=== PATIENT | female | born 1980 | race Hispanic/Latino ===

== ENCOUNTER 2017-07-01 17:00 | Emergency (ER) | payer SELFPAY ==
[~2017-07-01 17:00] MED LIST: AMOX-429 PO; NPH,100V11 SQ
== END 2017-07-01 18:32 | disposition home or self-care (01) ==
LOC: EDH 17:00
DX: E11.621 Type 2 diabetes mellitus with foot ulcer (principal); Z79.4 Long term (current) use of insulin
CPT/HCPCS: 99281

== ENCOUNTER 2020-02-26 14:23 | Inpatient (IN) | payer MEDICAID ==
[~2020-02-26] VITALS: Ht 160 cm; Wt 69.4 kg
[~2020-02-26 14:23] MED LIST changes: -AMOX-429 PO; +INSREG SQ; +INSU100I21 SQ; -NPH,100V11 SQ
[2020-02-26] MEDS ORDERED: DEXTROSE 50%-WATER 50 ML DISP.SYRIN IV ONE (14:50)
[2020-02-26] MEDS ORDERED: AZITHROMYCIN 250 MG TABLET PO ONE (16:06)
[2020-02-26] MEDS ORDERED: CEFTRIAXONE SODIUM 1 GM ONE (16:06)
[2020-02-26 17:29] LABS: BASOPHILS % (AUTO) 0.3 % (0.0-5.0); EOSINOPHILS % (AUTO) 0.9 % (0.0-8.0); HEMATOCRIT 26.6 % (36-48); MEAN CORPUSCULAR HEMOGLOBIN 27.2 pg (27.0-33.0); MEAN CORPUSCULAR VOLUME 85.3 fL (79-99); NEUTROPHILS % (AUTO) 83.2 % (40.0-77.0); PLATELET COUNT (AUTO) 358 K/uL (130-400); RED BLOOD CELL COUNT(AUTO) 3.12 MIL/uL (4.00-5.50); RED CELL DISTRIBUTION WIDTH 14.1 % (11.0-15.5); WHITE BLOOD COUNT (AUTO) 17.5 K/uL (4.8-10.8)
[2020-02-26 17:42] LABS: APPEARANCE,URINE Clear (CLEAR); BILIRUBIN,URINE Negative (NEGATIVE); COLOR,URINE Dark Yellow (YELLOW); GLUCOSE, URINE (UA) Negative (NEGATIVE); KETONES,URINE Trace mg/dL (NEGATIVE); LEUKOCYTE ESTERASE ,URINE Trace (NEGATIVE); NITRATE,URINE Negative (NEGATIVE); OCCULT BLOOD,URINE Negative (NEGATIVE); PROTEIN,URINE 300 mg/dL (NEGATIVE)
[2020-02-26 17:47] LABS: HCG,QUAL RESULT NEGATIVE (NEGATIVE)
[2020-02-26 17:47] LABS: CARBON DIOXIDE 24 mmol/L (21-32); CHLORIDE 101 mmol/L (101-111); CREATININE 1.1 mg/dL (0.5-1.5); GLOMERULAR FILTR. RATE CALC 58 mL/min (>60); GLUCOSE,RANDOM 212 mg/dL (70-105); INR 1.02 (0.85-1.15); PARTIAL THROMBOPLASTIN TIME 32.3 SEC (26.3-35.5); POTASSIUM 3.7 mmol/L (3.5-5.1); SODIUM SERUM 135 mmol/L (136-145); UREA NITROGEN, BLOOD 21 mg/dL (7-18)
[2020-02-26 17:52] LABS: ALANINE AMINOTRANSFERASE 14 U/L (12-78); ALBUMIN 1.9 g/dL (3.5-5.0); ASPARTATE AMINOTRANSFERASE 14 U/L (10-37); BILIRUBIN,TOTAL 0.3 mg/dL (0.2-1.0); CREATINE KINASE, TOTAL 22 U/L (21-232)
[2020-02-26 17:54] LABS: LIPASE < 50 U/L (114-286)
[2020-02-26 18:01] LABS: BACTERIA,URINE Few /HPF (None Seen); RBC,URINE 0-1 /HPF (0-1); WBC,URINE 0-1 /HPF (0-1)
[2020-02-26 18:02] LABS: MUCUS,URINE Few LPF (None Seen); SQUAMOUS EPITHELIAL CELL,UR Few /HPF (0-2); TRANSITIONAL EPI CELLS,URINE Few /HPF (None Seen)
[2020-02-26] MEDS ORDERED: SODIUM CHLORIDE 0.9% 1000ML 1,000 ML IV SCH (19:08)
[2020-02-26] MEDS ORDERED: MAG HYDROX/AL HYDROX/SIMETH 30 ML, LIDOCAINE HCL 2% VISCOUS 30 ML, DIPHENHYDRAMINE HCL ... PO PRN ×3 (19:15)
[2020-02-26] MEDS ORDERED: MORPHINE SULFATE 4 MG/1ML SYG IV PRN (19:15)
[2020-02-26] MEDS ORDERED: LIDOCAINE HCL 2% VISCOUS 30 ML, MAG HYDROX/AL HYDROX/SIMETH 30 ML, BELLADONNA-PHENOBARB... PO PRN ×3 (19:15)
[2020-02-26] MEDS ORDERED: MAG HYDROX/AL HYDROX/SIMETH ES 30 ML SUSP UDCUP PO PRN (19:15)
[2020-02-26] MEDS ORDERED: DIPHENHYDRAMINE HCL 25 MG CAPSULE PO PRN (19:15)
[2020-02-26] MEDS: CEFTRIAXONE SODIUM 1 GM IVP SCH (19:15)
[2020-02-26] MEDS ORDERED: NITROGLYCERIN 0.4 MG SL TAB SL PRN (19:15)
[2020-02-26] MEDS ORDERED: MORPHINE SULFATE 2 MG/ML 1ML SYG IV PRN (19:15)
[2020-02-26] MEDS ORDERED: LACTULOSE 20 GM/30 ML UDCUP PO PRN (19:15)
[2020-02-26] MEDS ORDERED: ERGOCALCIFEROL (VITAMIN D2) 50,000 UNIT CAPSULE PO ONE (19:15)
[2020-02-26] MEDS: AZITHROMYCIN 500MG+NS 250ML 250 ML IV SCH (19:15)
[2020-02-26] MEDS ORDERED: DiphenhydrAMINE HCL 50 MG/ML VIAL IV PRN (19:15)
[2020-02-26] MEDS ORDERED: ACETAMINOPHEN 325 MG TAB PO PRN (19:15)
[2020-02-26] MEDS ORDERED: ZOLPIDEM TARTRATE 5 MG TAB PO PRN (19:15)
[2020-02-26] MEDS ORDERED: ERGOCALCIFEROL (VITAMIN D2) 50,000 UNIT CAPSULE ONE (19:51)
[2020-02-26] MEDS ORDERED: FAMOTIDINE/PF 20 MG/2 ML VIAL IV ONE (19:52)
[2020-02-26] MEDS ORDERED: DEXAMETHASONE SOD PHOSPHATE 4 MG/ML 1ML VIAL ONE (19:52)
[2020-02-26] MEDS ORDERED: DEXAMETHASONE SOD PHOSPHATE 4 MG/ML 1ML VIAL IVP SCH (20:30)
[2020-02-26] MEDS: FAMOTIDINE/PF 20 MG/2 ML VIAL IV SCH (21:00)
[2020-02-27] VITALS (9 sets, daily range): BP systolic 109–184; BP diastolic 59–93
[2020-02-27] MEDS ORDERED: IPRATROPIUM 0.5 MG/2.5 ML INH IH SCH
--- NOTE | 2020-02-27 01:00 | NUR ---
RESPIRATORY CHANGE TELE CALLED TO REPORT SUDDEN DROP IN PATIENT'S HR TO 40S. ON ASSESSMENT PATIENT COMPLAIN OF FEELING HOT. OXYGEN SATURATION FOUND TO BE BETWEEN 72-88% ON ROOM AIR. RESPIRATORY THERAPIST HAD ARRIVED ON THE UNIT, ASSISTED WITH SETTING UP THE PATIENT ON 4L OXYGEN VIA NASAL CANNULA. PATIENT SATURATION BETWEEN 98-100%. TEMPERATURE CHECKED BY CHARGE WITH INFRARED THERMOMETER AND FOUND TO BE NORMAL. WILL CONTINUE TO MONITOR STATUS OF THE PATIENT.
--- NOTE | 2020-02-27 02:36 | NUR ---
ASSESSMENT PATIENT SKIN FOUND TO BE COLD AND CLAMMY, BLOOD GLUCOSE ASSESSED FOUND TO BE 173. PATIENT REMINDED TO USE THE CALL LIGHT AND CALL FOR HELP NEEDED. LEFT COMFORTABLE IN BED. DOCTOR ROUNDED AND WAS INFORMED ABOUT PREVIOUS DECREASE IN HEART RATE AND OXYGEN SATURATION. HE STATED TO MONITOR THE PATIENT AND PERFORM ABG IF THERE IS ANOTHER REDUCTION IN SATURATION.
[2020-02-27 05:05] LABS: BASOPHILS % (AUTO) 0.2 % (0.0-5.0); EOSINOPHILS % (AUTO) 0.1 % (0.0-8.0); HEMATOCRIT 27.5 % (36-48); LYMPHOCYTES % (AUTO) 9.4 % (21.0-51.0); MEAN CORPUSCULAR HGB CONC 31.6 g/dL (32.0-36.0); MEAN CORPUSCULAR VOLUME 85.4 fL (79-99); MONOCYTES % (AUTO) 1.3 % (3.0-13.0); NEUTROPHILS % (AUTO) 88.3 % (40.0-77.0); PLATELET COUNT (AUTO) 278 K/uL (130-400); RED BLOOD CELL COUNT(AUTO) 3.22 MIL/uL (4.00-5.50); WHITE BLOOD COUNT (AUTO) 12.8 K/uL (4.8-10.8)
[2020-02-27 05:32] LABS: BILIRUBIN,TOTAL 0.2 mg/dL (0.2-1.0); CREATININE 0.9 mg/dL (0.5-1.5); CRP QUANTITATIVE 171.2 mg/L (0.00-9.0); POTASSIUM 4.3 mmol/L (3.5-5.1); TOTAL PROTEIN, SERUM 7.4 g/dL (6.0-8.3)
[2020-02-27] MEDS: HYDRALAZINE HCL 20 MG/ML VIAL IV PRN ×2 (05:57→10:19)
[2020-02-27] MEDS: ALBUTEROL INHALER 90MCG/INH IH SCH ×5 (06:00→23:43)
--- NOTE | 2020-02-27 06:03 | NUR ---
ELEVATED BP SPOKE TO DUARTE OCAMPO WHO ORDERED [id number] IV EVERY 4 HOURS FOR SYSTOLIC BP ABOVE 150. WILL CONTINUE TO MONITOR BP.
--- NOTE | 2020-02-27 07:14 | NUR ---
ELEVATED BP [employer] SYSTEM[employer] ADMINISTRATOR TIRADO INFORMED OF BP 165/80, HR-77, INFORMED WITH ORDERS TO CONTINUE MONITORING. NO ADDITIONAL ORDERS AT THIS TIME.
[2020-02-27] MEDS: CEFTRIAXONE SODIUM 1 GM IVP SCH ×2 (09:09→18:30)
[2020-02-27] MEDS: ASCORBIC ACID 500 MG TAB PO SCH (09:09)
[2020-02-27] MEDS: ZINC SULFATE 220 CAPSULE PO SCH (09:09)
[2020-02-27] MEDS: FAMOTIDINE/PF 20 MG/2 ML VIAL IV SCH ×2 (09:09→20:41)
[2020-02-27] MEDS: ENOXAPARIN SODIUM 40 MG/0.4 ML SYRINGE SQ SCH (09:10)
[2020-02-27] MEDS: GABAPENTIN 100 MG CAPSULE PO SCH ×2 (12:09→18:30)
[2020-02-27] MEDS ORDERED: GLUCAGON 1MG KIT 1 MG ML IM PRN (12:45)
[2020-02-27] MEDS ORDERED: DEXTROSE 50%-WATER 50 ML DISP.SYRIN IV PRN (12:45)
[2020-02-27] MEDS: HUMALOG PO SS1/2 SQ SCH ×2 (16:53→21:00)
[2020-02-27] MEDS: INSULIN LISPRO 100 UNIT/ML 3ML SQ SCH (16:54)
--- NOTE | 2020-02-27 17:37 | NUR ---
cm note pt resides at home with family, independent with adls and ambulation. no dme. no home services. dc [place] no dc needs. Addendum: 02/27/20 at 1742 by CHUN BAEZA CM Amended: Links added.
[2020-02-27] MEDS: AZITHROMYCIN 500MG+NS 250ML 250 ML IV SCH (19:34)
[2020-02-27] MEDS: ONDANSETRON HCL 4 MG/2 ML VIAL IV PRN (20:41)
[2020-02-27] MEDS: GUAIFENESIN-DM 200/20 MG 10 ML PO PRN (20:41)
[2020-02-27] MEDS: ACETAMINOPHEN 325 MG TAB PO PRN (20:42)
[2020-02-27] MEDS: INSULIN GLARGINE 100 UNITS/ML 10 ML VIAL SQ SCH ×2 (20:44→21:00)
[2020-02-27] MEDS ORDERED: KETOROLAC TROMETHAMINE 15MG/ML ONE (21:35)
--- NOTE | 2020-02-27 21:48 | NUR ---
PATIENT COMPLAIN OF HEADACHE CONTACTED MATERIALS PLANNING MANAGER ON DUTY WHO ORDERED TORADOL. FIRST DOSE GIVEN BP 152/85, HR- 76. WILL CONTINUE TO ASSESS RESPONSE.
[2020-02-27] MEDS ORDERED: INHALER, ASSIST DEVICE 1 EA IH ONE (22:15)
[2020-02-28] MEDS: GABAPENTIN 100 MG CAPSULE PO SCH ×3 (01:44→18:48)
[2020-02-28 04:00] VITALS: BP 113/67
--- NOTE | 2020-02-28 04:00 | NUR ---
LUCOSE GMR 51, D50% ADMINISTERED PER PROTOCOL. DUARTE TIRADO ON THE UNIT AT THIS TIME. INFORMED ABOUT HYPOGLYCEMIC EPISODE. ORDERS GIVEN TO DISCONTINUE LANTUS AND BEGIN D5W AT 5MLS/HR TO MAINTAIN BLOOD GLUCOSE LEVEL BEGINNING AT 8AM. Addendum: 02/28/20 at 0433 by ISAMAR TERESA RN RN GLUCOSE
--- NOTE | 2020-02-28 04:11 | NUR ---
BLOOD CULTURE LAB REPORTED PRELIMINARY BLOOD CULTURE RESULTS OF GRAM POSITIVE RODS. GREY GOODS MARKER TIRADO INFORMED WITH PLAN TO CONTINUE ROCEPHIN ORDERED.GREY GOODS MARKER WILL ORDER CONSULT WITH INFECTION DISEASE SPECIALIST LATER THIS AM. GMR REPEATED AT 171. PT TEMP 95.8 WITH SHIVERING WARM BLANKET APPLIED FOR COMFORT. WILL REPEAT TEMPERATURE.
[2020-02-28 04:31] LABS: BASOPHILS % (AUTO) 0.2 % (0.0-5.0); MEAN CORPUSCULAR HGB CONC 31.2 g/dL (32.0-36.0); MEAN CORPUSCULAR VOLUME 86.5 fL (79-99); MONOCYTES % (AUTO) 5.9 % (3.0-13.0); NEUTROPHILS % (AUTO) 75.3 % (40.0-77.0); PLATELET COUNT (AUTO) 383 K/uL (130-400); RED BLOOD CELL COUNT(AUTO) 2.89 MIL/uL (4.00-5.50); RED CELL DISTRIBUTION WIDTH 14.3 % (11.0-15.5); WHITE BLOOD COUNT (AUTO) 14.3 K/uL (4.8-10.8)
[2020-02-28 04:51] LABS: ALBUMIN 1.8 g/dL (3.5-5.0); BILIRUBIN,TOTAL 0.2 mg/dL (0.2-1.0); CREATININE 1.3 mg/dL (0.5-1.5); CRP QUANTITATIVE 81.8 mg/L (0.00-9.0); POTASSIUM 3.9 mmol/L (3.5-5.1); TOTAL PROTEIN, SERUM 6.4 g/dL (6.0-8.3)
[2020-02-28] MEDS ORDERED: DEXTROSE 5%-WATER 1,000 ML IV ONE (05:06)
[2020-02-28] MEDS: ALBUTEROL INHALER 90MCG/INH IH SCH ×4 (05:25→23:29)
--- NOTE | 2020-02-28 05:28 | NUR ---
PAIN MANAGEMENT PATIENT CONTINUES TO COMPLAIN OF PAIN 12/06. REFUSED ALL PAIN MEDICATION AND OTHER NON-PHARMACOLOGIC MEASURES AT THIS TIME. EDUCATION REGARDING THE NEED TO MANAGE PAIN TO PREVENT IT FROM WORSENING COMPLETED. PATIENT CONTINUES TO REFUSE ALL INTERVENTIONS. TEMPERATURE RECHECKED AT 96.5 F.
[2020-02-28] MEDS: CEFTRIAXONE SODIUM 1 GM IVP SCH ×2 (06:12→18:48)
[2020-02-28] MEDS: HUMALOG PO SS1/2 SQ SCH ×4 (07:30→21:00)
[2020-02-28] MEDS: ENOXAPARIN SODIUM 40 MG/0.4 ML SYRINGE SQ SCH (09:00)
[2020-02-28] MEDS: ASCORBIC ACID 500 MG TAB PO SCH (09:37)
[2020-02-28] MEDS: FAMOTIDINE/PF 20 MG/2 ML VIAL IV SCH ×2 (09:37→21:31)
[2020-02-28] MEDS: ACETAMINOPHEN 325 MG TAB PO PRN (09:39)
[2020-02-28] MEDS: ZINC SULFATE 220 CAPSULE PO SCH (09:39)
[2020-02-28] MEDS: INSULIN LISPRO 100 UNIT/ML 3ML SQ SCH ×3 (09:40→16:58)
[2020-02-28] MEDS: DEXTROSE 5%-WATER 1,000 ML IV SCH ×2 (09:57→23:11)
[2020-02-28 09:58] VITALS: BP 139/79
--- NOTE | 2020-02-28 10:50 | NUR ---
HGB Decrease Notified MD Portillo of pt's 1 point HGB decrease. Awaiting new orders at this time.
[2020-02-28 11:30] VITALS: BP 94/57
[2020-02-28 11:40] LABS: BASOPHILS % (AUTO) 0.1 % (0.0-5.0); EOSINOPHILS % (AUTO) 0.7 % (0.0-8.0); HEMATOCRIT 27.6 % (36-48); LYMPHOCYTES % (AUTO) 12.9 % (21.0-51.0); MEAN CORPUSCULAR HEMOGLOBIN 27.5 pg (27.0-33.0); MEAN CORPUSCULAR HGB CONC 31.5 g/dL (32.0-36.0); MEAN CORPUSCULAR VOLUME 87.3 fL (79-99); MONOCYTES % (AUTO) 4.6 % (3.0-13.0); PLATELET COUNT (AUTO) 399 K/uL (130-400); RED BLOOD CELL COUNT(AUTO) 3.16 MIL/uL (4.00-5.50); RED CELL DISTRIBUTION WIDTH 14.4 % (11.0-15.5); WHITE BLOOD COUNT (AUTO) 13.5 K/uL (4.8-10.8)
--- NOTE | 2020-02-28 12:20 | NUR ---
Insulin Refused This RN at bedside to administer lunchtime insulin, pt reports feeling dizzy and requesting CBG recheck. CB, pt states she does not want 5 units of insulin. Insulin disposed via sharps container.
[2020-02-28] MEDS: ONDANSETRON HCL 4 MG/2 ML VIAL IV PRN ×2 (13:08→22:22)
--- NOTE | 2020-02-28 15:05 | NUR ---
Lumbar Puncture 1430: Kris Lackey CRNA at bedside to explain to patient benefits/side effects/adverse reactions of LP to pt. Pt verbalizes understanding. 1435: MELISSA Ponce at bedside to start procedure. Consents signed and Time Out complete. Multiple tubes of clear CSF collected. 1500: LP completed at this time, bandage dressing placed by TAPPING MACHINE OPERATOR AUTOMATIC. Pt tolerated well. Educated on LP aftercare, denies any pain or needs at this time.
--- NOTE | 2020-02-28 15:13 | NUR ---
Family Communication When I called Andrea (patient's father) for the family daily update call, he was quick to inform me that he only speaks Pashto. He requested his , Kassy, who is also the patient's mother, speak with us on speaker phone to ensure information was understood thoroughly.
[2020-02-28 16:56] VITALS: BP 144/77
[2020-02-28 18:19] LABS: APPEARANCE2,CSF CLEAR (CLEAR); COLOR2,CSF COLORLESS (COLORLESS); CSF 2ND TUBE NUMBER 3
[2020-02-28 18:26] LABS: APPEARANCE,CSF CLEAR (CLEAR); COLOR,CSF COLORLESS (COLORLESS); CSF TUBE NUMBER 1; WHITE BLOOD CELL1,CSF 0 CMM (0-5)
[2020-02-28 18:27] LABS: RED BLOOD CELL1,CSF 0 CMM (0-0)
[2020-02-28 19:02] LABS: GLUCOSE, CSF 61 mg/dL (40-70); TOTAL PROTEIN, CSF 29 mg/dL (15-45)
[2020-02-28] MEDS: AZITHROMYCIN 500MG+NS 250ML 250 ML IV SCH (19:29)
[2020-02-28 20:00] VITALS: BP 112/64
--- NOTE | 2020-02-28 20:35 | NUR ---
CSF RESULT DR. PRICE INFORMED ABOUT CSF RESULTS. NO NEW ORDERS GIVEN AT THIS TIME. STATES THAT HE WILL FOLLOW-UP WITH PATIENT TOMORROW. WILL CONTINUE TO MONITOR.
[2020-02-29] VITALS (7 sets, daily range): BP systolic 92–175; BP diastolic 54–87
[2020-02-29] MEDS: GABAPENTIN 100 MG CAPSULE PO SCH ×3 (01:33→19:13)
[2020-02-29] MEDS: GUAIFENESIN-DM 200/20 MG 10 ML PO PRN (01:33)
[2020-02-29 02:49] LABS: BASOPHILS % (AUTO) 0.2 % (0.0-5.0); EOSINOPHILS % (AUTO) 0.7 % (0.0-8.0); HEMATOCRIT 25.8 % (36-48); MEAN CORPUSCULAR HEMOGLOBIN 26.8 pg (27.0-33.0); MEAN CORPUSCULAR HGB CONC 31.4 g/dL (32.0-36.0); MEAN CORPUSCULAR VOLUME 85.4 fL (79-99); MONOCYTES % (AUTO) 4.2 % (3.0-13.0); PLATELET COUNT (AUTO) 380 K/uL (130-400); RED BLOOD CELL COUNT(AUTO) 3.02 MIL/uL (4.00-5.50); WHITE BLOOD COUNT (AUTO) 13.7 K/uL (4.8-10.8)
[2020-02-29 02:57] LABS: HEMOGLOBIN A1C 10.5 % (4.0-6.0)
[2020-02-29 03:02] LABS: ALANINE AMINOTRANSFERASE 14 U/L (12-78); ALBUMIN 1.9 g/dL (3.5-5.0); ASPARTATE AMINOTRANSFERASE 9 U/L (10-37); BILIRUBIN,TOTAL 0.2 mg/dL (0.2-1.0); CARBON DIOXIDE 25 mmol/L (21-32); CHLORIDE 102 mmol/L (101-111); CREATININE 1.1 mg/dL (0.5-1.5); GLOMERULAR FILTR. RATE CALC 58 mL/min (>60); GLUCOSE,RANDOM 282 mg/dL (70-105); LACTATE DEHYDROGENASE 114 U/L (81-234); POTASSIUM 4.3 mmol/L (3.5-5.1); SODIUM SERUM 135 mmol/L (136-145); TOTAL PROTEIN, SERUM 6.9 g/dL (6.0-8.3); UREA NITROGEN, BLOOD 23 mg/dL (7-18)
[2020-02-29 03:05] LABS: B-TYPE NATRIURETIC PEPTIDE 86 pg/mL (0-100)
[2020-02-29] MEDS: CEFTRIAXONE SODIUM 1 GM IVP SCH ×2 (06:26→19:14)
[2020-02-29] MEDS: ALBUTEROL INHALER 90MCG/INH IH SCH ×3 (06:27→19:13)
[2020-02-29] MEDS: HUMALOG PO SS1/2 SQ SCH ×4 (07:30→21:48)
[2020-02-29] MEDS: INSULIN LISPRO 100 UNIT/ML 3ML SQ SCH ×3 (08:47→17:00)
[2020-02-29] MEDS: ZINC SULFATE 220 CAPSULE PO SCH (10:02)
[2020-02-29] MEDS: FAMOTIDINE/PF 20 MG/2 ML VIAL IV SCH ×2 (10:02→21:47)
[2020-02-29] MEDS: ASCORBIC ACID 500 MG TAB PO SCH (10:03)
[2020-02-29] MEDS: ENOXAPARIN SODIUM 40 MG/0.4 ML SYRINGE SQ SCH (10:03)
[2020-02-29] MEDS: KETOROLAC TROMETHAMINE 15MG/ML IV PRN ×2 (11:36→19:14)
[2020-02-29] MEDS: DEXTROSE 5%-WATER 1,000 ML IV SCH (17:22)
[2020-02-29] MEDS: AZITHROMYCIN 500MG+NS 250ML 250 ML IV SCH (19:13)
[2020-02-29] MEDS ORDERED: KETOROLAC TROMETHAMINE 15MG/ML IV SCH (20:40)
[2020-03-01] VITALS (7 sets, daily range): BP systolic 112–162; BP diastolic 52–84
[2020-03-01] MEDS: GABAPENTIN 100 MG CAPSULE PO SCH ×3 (02:36→19:30)
[2020-03-01] MEDS: ALBUTEROL INHALER 90MCG/INH IH SCH ×4 (06:00→17:37)
[2020-03-01] MEDS: HUMALOG PO SS1/2 SQ SCH ×4 (06:44→21:00)
[2020-03-01] MEDS: CEFTRIAXONE SODIUM 1 GM IVP SCH ×2 (06:57→19:15)
[2020-03-01] MEDS: ASCORBIC ACID 500 MG TAB PO SCH (09:10)
[2020-03-01] MEDS: ZINC SULFATE 220 CAPSULE PO SCH (09:10)
[2020-03-01] MEDS: FAMOTIDINE/PF 20 MG/2 ML VIAL IV SCH ×2 (09:10→21:44)
[2020-03-01] MEDS: ENOXAPARIN SODIUM 40 MG/0.4 ML SYRINGE SQ SCH (09:11)
[2020-03-01] MEDS: INSULIN LISPRO 100 UNIT/ML 3ML SQ SCH ×3 (09:12→17:37)
[2020-03-01] MEDS: DEXTROSE 5%-WATER 1,000 ML IV SCH (11:33)
[2020-03-01] MEDS: SUMATRIPTAN SUCCINATE 25 MG TABLET PO PRN ×2 (14:33→17:36)
[2020-03-01] MEDS: FLUTICASONE PROPIONATE 50MCG/SPRAY 16 GM BOTTLE EN SCH (22:07)
[2020-03-02] MEDS: ALBUTEROL INHALER 90MCG/INH IH SCH ×2 (00:18→05:05)
[2020-03-02] MEDS: KETOROLAC TROMETHAMINE 15MG/ML IV PRN ×3 (01:28→14:27)
[2020-03-02] MEDS: GABAPENTIN 100 MG CAPSULE PO SCH ×2 (02:08→09:49)
[2020-03-02 03:51] VITALS: BP 141/87
[2020-03-02] MEDS: DEXTROSE 5%-WATER 1,000 ML IV SCH (04:13)
[2020-03-02] MEDS: HUMALOG PO SS1/2 SQ SCH (05:58)
[2020-03-02] MEDS: INSULIN LISPRO 100 UNIT/ML 3ML SQ SCH (05:59)
--- NOTE | 2020-03-02 07:45 | NUR ---
ASSESSMENT ENCOUNTERED PT A&OX3 C/O HEADACHE 04/07, NO FACIAL DROOP OR SLURRED SPEECH. TONGUE MIDLINE WITH NO DIFFICULTY SWALLOWING FOODS, FLUIDS OR MEDICATION. PT IS AMBULATORY, GAIT SLOW BUT STEADY WITH STAND BY ASSIST.
[2020-03-02] MEDS ORDERED: CEFTRIAXONE SODIUM 1 GM IVP SCH (08:00)
[2020-03-02 08:41] VITALS: BP 115/61
[2020-03-02] MEDS: ASCORBIC ACID 500 MG TAB PO SCH (09:49)
[2020-03-02] MEDS: FAMOTIDINE/PF 20 MG/2 ML VIAL IV SCH (09:49)
[2020-03-02] MEDS: ONDANSETRON HCL 4 MG/2 ML VIAL IV PRN (09:49)
[2020-03-02] MEDS: ZINC SULFATE 220 CAPSULE PO SCH (09:49)
[2020-03-02] MEDS: FLUTICASONE PROPIONATE 50MCG/SPRAY 16 GM BOTTLE EN SCH (09:50)
[2020-03-02] MEDS: ENOXAPARIN SODIUM 40 MG/0.4 ML SYRINGE SQ SCH (09:50)
[2020-03-02 10:14] LABS: BASOPHILS % (AUTO) 0.2 % (0.0-5.0); EOSINOPHILS % (AUTO) 1.4 % (0.0-8.0); HEMATOCRIT 25.7 % (36-48); LYMPHOCYTES % (AUTO) 13.5 % (21.0-51.0); MEAN CORPUSCULAR HEMOGLOBIN 26.9 pg (27.0-33.0); MEAN CORPUSCULAR HGB CONC 31.5 g/dL (32.0-36.0); MEAN CORPUSCULAR VOLUME 85.4 fL (79-99); MONOCYTES % (AUTO) 4.3 % (3.0-13.0); PLATELET COUNT (AUTO) 367 K/uL (130-400); RED BLOOD CELL COUNT(AUTO) 3.01 MIL/uL (4.00-5.50); RED CELL DISTRIBUTION WIDTH 13.8 % (11.0-15.5); WHITE BLOOD COUNT (AUTO) 12.7 K/uL (4.8-10.8)
[2020-03-02 10:35] LABS: BILIRUBIN,TOTAL 0.1 mg/dL (0.2-1.0); CREATININE 0.8 mg/dL (0.5-1.5); CRP QUANTITATIVE 80.3 mg/L (0.00-9.0); POTASSIUM 4.2 mmol/L (3.5-5.1); TOTAL PROTEIN, SERUM 7.1 g/dL (6.0-8.3)
[2020-03-02 11:18] LABS: ERYTHROCYTE SEDIMENTATION RATE 121 MM/HR (0-20)
[2020-03-02] MEDS ORDERED: MECLIZINE HCL 25 MG TABLET PO PRN (11:45)
[2020-03-02] MEDS ORDERED: SUMATRIPTAN SUCCINATE 25 MG TABLET PO PRN (11:45)
[2020-03-02 12:14] VITALS: BP 153/81
--- NOTE | 2020-03-02 16:00 | NUR ---
AGAINST MEDICAL ADVICE PT INFORMED OF RISKS OF LEAVING AGAINST MEDICAL ADVICE THAT INCLUDED, BUT NOT LIMITED TO, WORSENING HEADACHE, FEVER, DIZZINESS, NAUSEA, VOMITING, WEAKNESS, VISION DISORDERS, STROKE, . PT STATED SHE UNDERSTOOD RISKS AND SIGNED AGAINST MEDICAL ADVICE FORM. PT TO FAMILY CAR VIA WHEELCHAIR.
[2020-03-02] MEDS ORDERED: DEXAMETHASONE 4 MG TAB PO SCH (16:30)
[2020-03-02] MEDS ORDERED: DOXYCYCLINE 100MG+NS 250ML 250 ML IV SCH (17:00)
[2020-03-20 05:12] LABS: HSV 1/2 COMBINED AB IGG CSF 0.43 IV (<=0.89); HSV TYPE 1/2 COMBINED IGM CSF 0.34 IV (<=0.89); MUMPS VIRUS IGG ANTIBODY CSF <5.0 AU/mL (<=10.9); MUMPS VIRUS IGM ANTIBODY CSF 0.05 IV (<=0.79); RUBEOLA (MEASLES) IGM CSF 0.39 AU (0.00-0.79); VARICELLA IGG ANTIBODY CSF <10.0 IV (.); VARICELLA IGM ANTIBODY CSF 0.04 ISR (<=0.90); WEST NILE VIRUS IGG CSF 0.07 IV (<=1.29)
== END 2020-03-02 18:35 | disposition left against medical advice (07) | DRG 54 ==
LOC: EDH 14:23 → EDHIP 14:24 → 2DH 23:53 → 4CH 02-29 05:54 → 2DH 02-29 05:59 → 4CH 02-29 08:53
PROVIDERS: ADMIT Internal Medicine; ATTEND Internal Medicine
PROC: 009U3ZX Drainage of Spinal Canal, Percutaneous Approach, Diagnostic (ICD-10-PCS; principal; 2020-02-26)
DX: G43.909 Migraine, unspecified, not intractable, without status migrainosus (principal); J18.9 Pneumonia, unspecified organism; N39.0 Urinary tract infection, site not specified; Z79.4 Long term (current) use of insulin; D72.829 Elevated white blood cell count, unspecified; H53.149 Visual discomfort, unspecified; D64.9 Anemia, unspecified; E78.5 Hyperlipidemia, unspecified; F17.200 Nicotine dependence, unspecified, uncomplicated; T38.0X5A Adverse effect of glucocorticoids and synthetic analogues, initial encounter; Z20.828 Contact with and (suspected) exposure to other viral communicable diseases; K21.9 Gastro-esophageal reflux disease without esophagitis; E10.649 Type 1 diabetes mellitus with hypoglycemia without coma; E66.9 Obesity, unspecified; J32.0 Chronic maxillary sinusitis; R07.9 Chest pain, unspecified; Z68.27 Body mass index [BMI] 27.0-27.9, adult; Y92.89 Other specified places as the place of occurrence of the external cause; Z82.0 Family history of epilepsy and other diseases of the nervous system; Z82.3 Family history of stroke; Z82.49 Family history of ischemic heart disease and other diseases of the circulatory system; Z82.5 Family history of asthma and other chronic lower respiratory diseases; Z83.3 Family history of diabetes mellitus; Z90.710 Acquired absence of both cervix and uterus
CPT/HCPCS: 36415; 70450; 70544; 70547; 70551; 71045; 80053; 81001; 81025; 82550; 82728; 82945; 82948; 83036; 83605; 83615; 83690; 83880; 84145; 84157; 84443; 84484; 85025; 85378; 85610; 85651; 85730; 86140; 86592; 86694; 86701; 86735; 86765; 86787; 86788; 87040; 87390; 87426; 87483; 87486; 87581; 87633; 87798; 89051; 93005; 99291; G0378; J0360; J0456; J0696; J1100; J1650; J1885; J2270; J2405; J3490; J7070; U0003

== ENCOUNTER 2021-09-13 00:13 | Emergency (ER) | payer MEDICAID ==
[~2021-09-13] VITALS: Ht 160 cm; Wt 56.7 kg
[2021-09-13] MEDS ORDERED: ONDANSETRON 4MG INJ ONE (00:39)
[2021-09-13 00:47] LABS: BASOPHILS % (AUTO) 0.3 % (0.0-5.0); EOSINOPHILS % (AUTO) 0.3 % (0.0-8.0); HEMATOCRIT 34.9 % (36-48); LYMPHOCYTES % (AUTO) 15.9 % (21.0-51.0); MEAN CORPUSCULAR HEMOGLOBIN 29.6 pg (27.0-33.0); MEAN CORPUSCULAR VOLUME 89.9 fL (79-99); NEUTROPHILS % (AUTO) 80.1 % (40.0-77.0); PLATELET COUNT (AUTO) 263 K/uL (130-400); RED BLOOD CELL COUNT(AUTO) 3.88 MIL/uL (4.00-5.50); RED CELL DISTRIBUTION WIDTH 11.9 % (11.0-15.5)
[2021-09-13 00:48] LABS: APPEARANCE,URINE Cloudy (CLEAR); BILIRUBIN,URINE Negative (NEGATIVE); COLOR,URINE Yellow (YELLOW); GLUCOSE, URINE (UA) Negative (NEGATIVE); KETONES,URINE Trace mg/dL (NEGATIVE); LEUKOCYTE ESTERASE ,URINE Trace (NEGATIVE); NITRATE,URINE Positive (NEGATIVE); OCCULT BLOOD,URINE Negative (NEGATIVE); PH,URINE 6.5 (5.0-8.0); PROTEIN,URINE POS 2+ mg/dL (NEGATIVE)
[2021-09-13 00:53] LABS: HCG,QUAL RESULT NEGATIVE (NEGATIVE)
[2021-09-13 00:59] LABS: BACTERIA,URINE Many /HPF (None Seen); MUCUS,URINE Few LPF (None Seen); RBC,URINE None Seen /HPF (0-1); SQUAMOUS EPITHELIAL CELL,UR Rare /HPF (0-2)
[2021-09-13 01:17] LABS: CREATININE 1.2 mg/dL (0.5-1.5); POTASSIUM 4.2 mmol/L (3.5-5.1)
[2021-09-13 01:20] LABS: ALBUMIN 4.7 g/dL (3.5-5.0); BILIRUBIN,TOTAL 0.6 mg/dL (0.2-1.0)
[2021-09-13] MEDS ORDERED: CEFTRIAXONE 1G VIAL IVP ONE (02:30)
[2021-09-13] MEDS ORDERED: KETOROLAC 30MG VIAL (30MG/ML) ONE (02:42)
[2021-09-13] MEDS ORDERED: KETOROLAC 15MG/ML VIAL (15MG/ML) IV ONE (03:00)
[2021-09-13] MEDS ORDERED: NITR100C4 PO (03:22)
[2021-09-13] MEDS ORDERED: ONDA22I PO (03:22)
[2021-09-13 03:24] VITALS: BP 127/75
== END 2021-09-13 03:30 | disposition home or self-care (01) ==
LOC: EDH 00:13
DX: N39.0 Urinary tract infection, site not specified (principal); R11.2 Nausea with vomiting, unspecified; R19.7 Diarrhea, unspecified; E10.9 Type 1 diabetes mellitus without complications; Z79.4 Long term (current) use of insulin; Z88.5 Allergy status to narcotic agent
CPT/HCPCS: 36415; 80053; 81001; 81025; 83605; 83690; 85025; 87040 ×2; 87077 ×2; 87088; 87186 ×2; 96374; 96375; 99285; J0696; J1885; J2405

== ENCOUNTER 2022-01-05 00:13 | Observation (INO) | payer MEDICAID ==
[~2022-01-05] VITALS: Ht 157.5 cm; Wt 49.4 kg
[~2022-01-05 00:13] MED LIST changes: +NITR100C4 PO; +ONDA22I PO
[2022-01-05 02:40] LABS: BASOPHILS % (AUTO) 0.2 % (0.0-5.0); LYMPHOCYTES % (AUTO) 9.2 % (21.0-51.0); MEAN CORPUSCULAR HEMOGLOBIN 28.8 pg (27.0-33.0); MEAN CORPUSCULAR HGB CONC 34.1 g/dL (32.0-36.0); MEAN CORPUSCULAR VOLUME 84.7 fL (79-99); MONOCYTES % (AUTO) 2.1 % (3.0-13.0); NEUTROPHILS % (AUTO) 88.1 % (40.0-77.0); PLATELET COUNT (AUTO) 236 K/uL (130-400); RED BLOOD CELL COUNT(AUTO) 3.78 MIL/uL (4.00-5.50); RED CELL DISTRIBUTION WIDTH 11.5 % (11.0-15.5); WHITE BLOOD COUNT (AUTO) 10.4 K/uL (4.8-10.8)
[2022-01-05 02:41] LABS: APPEARANCE,URINE CLEAR (CLEAR); BILIRUBIN,URINE NEGATIVE (NEGATIVE); COLOR,URINE YELLOW (YELLOW); GLUCOSE, URINE (UA) 500 mg/dL (NEGATIVE); KETONES,URINE 40 mg/dL (NEGATIVE); LEUKOCYTE ESTERASE ,URINE NEGATIVE (NEGATIVE); NITRATE,URINE NEGATIVE (NEGATIVE); OCCULT BLOOD,URINE TRACE-INTACT (NEGATIVE); PROTEIN,URINE 100 mg/dL (NEGATIVE); UROBILINOGEN,URINE 0.2 mg/dL (0.2-1.0)
[2022-01-05 02:47] LABS: BACTERIA,URINE Rare /HPF (None Seen); RBC,URINE 0-1 /HPF (0-1); SQUAMOUS EPITHELIAL CELL,UR Moderate /HPF (0-2); WBC,URINE None Seen /HPF (0-1)
[2022-01-05 02:51] LABS: CREATININE 1.5 mg/dL (0.5-1.5); POTASSIUM 4.3 mmol/L (3.5-5.1)
[2022-01-05 02:55] LABS: ALBUMIN 4.3 g/dL (3.5-5.0); TOTAL PROTEIN, SERUM 8.6 g/dL (6.0-8.3)
[2022-01-05] MEDS ORDERED: 0.9%NACL 1000ML 1,000 ML IV ONE (04:30)
[2022-01-05] MEDS ORDERED: ONDANSETRON 4MG INJ IVP ONE (04:30)
[2022-01-05] MEDS ORDERED: HALOPERIDOL INJ 5 MG/ML VIAL IV SCH (04:30)
[2022-01-05] MEDS ORDERED: IOHEXOL 350 MG/ML 100ML INFUS..BTL IV ONE (05:17)
[2022-01-05 05:39] LABS: OCCULT BLOOD,GASTRIC FLUID POSITIVE (NEGATIVE)
[2022-01-05] MEDS ORDERED: ACETAMINOPHEN 325 MG TAB PO PRN (08:00)
[2022-01-05] MEDS ORDERED: GLUCAGON 1MG KIT 1 MG ML IM PRN (08:00)
[2022-01-05] MEDS: PANTOPRAZOLE 40 MG/VIAL IVP SCH (08:43)
[2022-01-05 10:20] VITALS: BP 169/93
[2022-01-05] MEDS: ONDANSETRON 4MG INJ IVP PRN ×3 (10:32→22:37)
[2022-01-05] MEDS: INSULIN HUMULIN R 100 UNIT/ML 3ML SQ SCH ×3 (11:30→21:14)
[2022-01-05] MEDS ORDERED: DICY10CA13 PO (13:08)
[2022-01-05] MEDS ORDERED: ONDA4TAB10 PO (13:08)
[2022-01-05] MEDS ORDERED: ATOR40TA69 PO (13:08)
[2022-01-05] MEDS ORDERED: PANT40TA54 PO (13:08)
[2022-01-05] MEDS ORDERED: CETI10TA57 PO (13:08)
[2022-01-05] MEDS ORDERED: AMOX-420 PO (13:08)
[2022-01-05] MEDS ORDERED: FAMO20TA8 PO (13:08)
[2022-01-05] MEDS: 1/2 NS 1000ML 1,000 ML IV SCH ×2 (14:55→22:37)
[2022-01-05 16:00] VITALS: BP 150/76
[2022-01-05] MEDS ORDERED: FAMOTIDINE 20MG TAB PO PRN (19:30)
[2022-01-05 20:06] VITALS: BP 129/84
[2022-01-05] MEDS: DICYCLOMINE HCL 20 MG TAB PO SCH (22:37)
[2022-01-05 23:26] VITALS: BP 161/88
[2022-01-06] VITALS (19 sets, daily range): BP systolic 113–163; BP diastolic 62–89
[2022-01-06] MEDS: DEXTROSE 50%-WATER 50 ML DISP.SYRIN IV PRN ×2 (00:31→22:31)
[2022-01-06 05:21] LABS: BASOPHILS % (AUTO) 0.1 % (0.0-5.0); HEMATOCRIT 29.6 % (36-48); LYMPHOCYTES % (AUTO) 12.5 % (21.0-51.0); MEAN CORPUSCULAR HEMOGLOBIN 29.3 pg (27.0-33.0); MEAN CORPUSCULAR HGB CONC 34.5 g/dL (32.0-36.0); MEAN CORPUSCULAR VOLUME 85.1 fL (79-99); MONOCYTES % (AUTO) 6.7 % (3.0-13.0); NEUTROPHILS % (AUTO) 80.3 % (40.0-77.0); PLATELET COUNT (AUTO) 227 K/uL (130-400); RED BLOOD CELL COUNT(AUTO) 3.48 MIL/uL (4.00-5.50); RED CELL DISTRIBUTION WIDTH 11.6 % (11.0-15.5); WHITE BLOOD COUNT (AUTO) 11.1 K/uL (4.8-10.8)
[2022-01-06 05:35] LABS: ALBUMIN 3.7 g/dL (3.5-5.0); CREATININE 1.3 mg/dL (0.5-1.5); TOTAL PROTEIN, SERUM 7.7 g/dL (6.0-8.3)
[2022-01-06] MEDS: INSULIN HUMULIN R 100 UNIT/ML 3ML SQ SCH (06:46)
[2022-01-06] MEDS: 1/2 NS 1000ML 1,000 ML IV SCH ×2 (06:56→17:08)
[2022-01-06] MEDS: ONDANSETRON 4MG INJ IVP PRN ×3 (06:56→22:19)
[2022-01-06] MEDS: PANTOPRAZOLE 40 MG TAB DR PO SCH (09:00)
[2022-01-06] MEDS: CETIRIZINE HCL 5 MG TABLET PO SCH (09:00)
[2022-01-06] MEDS: ATORVASTATIN 40 MG TABLET PO SCH (09:00)
[2022-01-06] MEDS: DICYCLOMINE HCL 20 MG TAB PO SCH ×3 (09:00→20:36)
[2022-01-06] MEDS: PANTOPRAZOLE 40 MG/VIAL IVP SCH (09:30)
[2022-01-06] MEDS ORDERED: 0.9%NACL 1000ML 1,000 ML IV ONE (11:52)
[2022-01-06] MEDS ORDERED: PROPOFOL 10 MG/ML 20ML VIAL IV ONE (12:33)
[2022-01-06] MEDS ORDERED: FENTANYL CITRATE PF 50 MCG/1 ML 2ML VIAL ONE (12:33)
[2022-01-06] MEDS ORDERED: PHARMACY COMMUNICATION MISC SCH (13:30)
[2022-01-06] MEDS: HUMALOG PO SS1 SQ SCH ×2 (17:19→20:34)
[2022-01-07] MEDS: 1/2 NS 1000ML 1,000 ML IV SCH ×3 (01:26→20:11)
[2022-01-07 04:56] LABS: HEMATOCRIT 29.6 % (36-48); MEAN CORPUSCULAR HEMOGLOBIN 28.6 pg (27.0-33.0); MEAN CORPUSCULAR HGB CONC 34.1 g/dL (32.0-36.0); MEAN CORPUSCULAR VOLUME 83.9 fL (79-99); RED BLOOD CELL COUNT(AUTO) 3.53 MIL/uL (4.00-5.50); RED CELL DISTRIBUTION WIDTH 11.3 % (11.0-15.5); WHITE BLOOD COUNT (AUTO) 9.8 K/uL (4.8-10.8)
[2022-01-07 05:07] VITALS: BP 141/84
[2022-01-07 05:13] LABS: POTASSIUM 3.5 mmol/L (3.5-5.1)
[2022-01-07] MEDS: HUMALOG PO SS1 SQ SCH ×4 (06:39→21:00)
[2022-01-07 08:00] VITALS: BP 153/78
[2022-01-07] MEDS: PANTOPRAZOLE 40 MG/VIAL IVP SCH (08:06)
[2022-01-07] MEDS: ATORVASTATIN 40 MG TABLET PO SCH (09:43)
[2022-01-07] MEDS: DICYCLOMINE HCL 20 MG TAB PO SCH ×4 (09:43→20:04)
[2022-01-07] MEDS: CETIRIZINE HCL 5 MG TABLET PO SCH (09:43)
[2022-01-07] MEDS: PANTOPRAZOLE 40 MG TAB DR PO SCH (09:43)
[2022-01-07] MEDS: ONDANSETRON 4MG INJ IVP PRN (09:43)
[2022-01-07 12:00] VITALS: BP 139/66
[2022-01-07] MEDS ORDERED: LIDOCAINE HCL-MPF 1% 2ML VIAL IV PRN (13:30)
[2022-01-07] MEDS ORDERED: POTASSIUM CHLORIDE 20MEQ/100ML 100 ML IV PRN (13:30)
[2022-01-07] MEDS: KCL 20 MEQ ERTAB PO PRN ×2 (13:31→18:12)
[2022-01-07 16:00] VITALS: BP 167/75
[2022-01-07 19:00] VITALS: BP 120/75
[2022-01-07 23:23] VITALS: BP 142/57
[2022-01-08 00:41] LABS: BASOPHILS % (AUTO) 0.2 % (0.0-5.0); EOSINOPHILS % (AUTO) 0.7 % (0.0-8.0); HEMATOCRIT 28.4 % (36-48); LYMPHOCYTES % (AUTO) 32.5 % (21.0-51.0); MEAN CORPUSCULAR HGB CONC 35.2 g/dL (32.0-36.0); MEAN CORPUSCULAR VOLUME 82.3 fL (79-99); MONOCYTES % (AUTO) 9.5 % (3.0-13.0); NEUTROPHILS % (AUTO) 56.8 % (40.0-77.0); PLATELET COUNT (AUTO) 199 K/uL (130-400); RED BLOOD CELL COUNT(AUTO) 3.45 MIL/uL (4.00-5.50); RED CELL DISTRIBUTION WIDTH 11.3 % (11.0-15.5); WHITE BLOOD COUNT (AUTO) 9.4 K/uL (4.8-10.8)
[2022-01-08 00:57] LABS: ALBUMIN 3.2 g/dL (3.5-5.0); CREATININE 1.1 mg/dL (0.5-1.5); POTASSIUM 3.3 mmol/L (3.5-5.1); TOTAL PROTEIN, SERUM 6.4 g/dL (6.0-8.3)
[2022-01-08] MEDS: POTASSIUM CHLORIDE 10% ELIXIR 20 MEQ/15 ML UDCUP PO PRN ×2 (02:07→04:14)
[2022-01-08 04:00] VITALS: BP 145/71
[2022-01-08] MEDS: 1/2 NS 1000ML 1,000 ML IV SCH ×2 (04:17→05:30)
[2022-01-08] MEDS: HUMALOG PO SS1 SQ SCH (05:53)
[2022-01-08 08:00] VITALS: BP 161/90
[2022-01-08] MEDS: PANTOPRAZOLE 40 MG/VIAL IVP SCH (09:00)
[2022-01-08] MEDS: DICYCLOMINE HCL 20 MG TAB PO SCH (09:24)
[2022-01-08] MEDS: ATORVASTATIN 40 MG TABLET PO SCH (09:24)
[2022-01-08] MEDS: CETIRIZINE HCL 5 MG TABLET PO SCH (09:24)
[2022-01-08] MEDS: PANTOPRAZOLE 40 MG TAB DR PO SCH (09:24)
[2022-01-08] MEDS: KCL 20 MEQ ERTAB PO PRN (11:18)
== END 2022-01-08 11:45 | disposition home or self-care (01) ==
LOC: EDH 00:13 → EDHIP 00:14 → UNDOADMOB 06:19 → 3AH 10:10 → EDHIP 10:10
PROVIDERS: ADMIT Internal Medicine; ATTEND Internal Medicine
DX: K20.90 Esophagitis, unspecified without bleeding (principal); K29.70 Gastritis, unspecified, without bleeding; E10.9 Type 1 diabetes mellitus without complications; E87.6 Hypokalemia; E86.0 Dehydration; I10 Essential (primary) hypertension; E78.5 Hyperlipidemia, unspecified; K92.0 Hematemesis; E78.00 Pure hypercholesterolemia, unspecified; Z79.4 Long term (current) use of insulin; Z87.891 Personal history of nicotine dependence; Z90.49 Acquired absence of other specified parts of digestive tract; Z90.710 Acquired absence of both cervix and uterus; Z79.899 Other long term (current) drug therapy; Z98.890 Other specified postprocedural states
CPT/HCPCS: 96374; 96376 ×3; 96361 ×5; 96375 ×2; 99285; 80053 ×3; 83690; 85025 ×3; 82948 ×21; 82271 ×2; 81001; 36415 ×4; 74177; 96372 ×3; 82947; 88305; 88342; 43239; 80048; 85027; G0378 ×73; J7030 ×2; J1630; J2405 ×8; S0164 ×2; J1815 ×2; Q9967; J3010; J7070 ×2; J3490; A4620; A4215; A4223; A4222; A4606; C9113; J2704